=== PATIENT | female | born 2000 | race Caucasian/White ===

== ENCOUNTER 2025-04-28 22:32 | Inpatient (IN) ==
[2025-04-28] MEDS ORDERED: CALCIUM CARBONATE 500 MG CHEWABLE TAB PO PRN (23:18)
[2025-04-28] MEDS ORDERED: LIDOCAINE 1% LOCAL 20 ML VIAL INFIL PRN (23:18)
[2025-04-28] MEDS ORDERED: OXYTOCIN 30 UNITS/NSS 30 UNITS/500 ML BAG IV PRN (23:18)
[2025-04-28] MEDS ORDERED: ACETAMINOPHEN 325 MG TAB PO PRN (23:18)
[2025-04-28 23:53] LABS: Hematocrit (blood only) 32.2 % (37.0-47.0); Hemoglobin 10.7 g/dl (12.0-16.0); Mean Corpuscular Hemoglobin 26.2 pg (25.0-34.0); Mean Corpuscular Volume 78.7 fL (80.0-100.0); Platelet Count 282 K/uL (130-400); RDW Standard Deviation 38.9 fL (36.4-46.3); Red Blood Count 4.09 M/uL (4.20-5.40); White Blood Count 12.93 K/ul (4.8-10.8)
[2025-04-29] MEDS: LACTATED RINGER'S 1,000 ML IV PRN (00:25)
[2025-04-29] MEDS ORDERED: diphenhydrAMINE 50 MG/ML VIAL IV PRN (00:54)
[2025-04-29] MEDS ORDERED: LIDOCAINE 2% MPF LOCAL 5 ML VIAL EPI PRN (00:54)
[2025-04-29] MEDS ORDERED: SODIUM CHLORIDE 0.9% PF INJ 10 ML VIAL EPI PRN (00:54)
[2025-04-29] MEDS ORDERED: NALOXONE HCL 1 MG in SODIUM CHLORIDE 0.9% 1,000 ML IV PRN (00:54)
[2025-04-29] MEDS ORDERED: BUPIVACAINE 0.25% PF 30 ML VIAL EPI PRN (00:54)
[2025-04-29] MEDS ORDERED: ROPIVACAINE 0.5% PF 5 MG/ML 20 ML VIAL EPI PRN (00:54)
[2025-04-29] MEDS ORDERED: NALOXONE HCL 0.4 MG/1 ML VIAL/CARP IV PRN (00:54)
[2025-04-29] MEDS ORDERED: NALBUPHINE HCL INJ 10 MG/ML AMP IV PRN (00:54)
--- NOTE | 2025-04-29 00:54 | Anesthesiology Consultation ---
Date of Service April 29, 2025 Assessment & Plan (1) Encounter for pre-operative examination: Chart Review Chart Review: Patient NOT seen in Pre Admission Testing and Acceptable Risk for Labor Epidural Consults Requested none History Height/Weight Height: 5 ft 4 in Weight: 92.533 kg Allergies Allergy/AdvReac Type Severity Reaction Status Date / Time No Known Allergies Allergy Unknown Verified 04/28/25 23:01 Medications Home Medications Medication Instructions Recorded Confirmed Last Taken [id number] 1 mg 1 tab PO DAILY 04/28/25 04/28/25 04/28/25 tablet Active Medications Generic Name Dose Route Start Last Admin Trade Name Freq PRN Reason Stop Dose Admin Lactated Ringer's 1,000 mls @ 125 mls/hr 04/28/25 23:18 04/29/25 00:25 Lr IV 04/30/25 23:17 999 mls/hr .Q8H PRN Administration L&D Protocol Protocol Past Medical History Medical History Anemia had iron infusion today Past Surgical History Surgical History [place] teeth removed Social History Smoking Status: Former smoker Hx Alcohol Use: No Hx Substance Use: No Physical Exam Vital Signs Last Vital Signs Temp 98.2 F 04/28/25 23:02 Pulse 75 04/28/25 22:57 Resp 18 04/28/25 23:02 BP 124/74 04/28/25 22:57 O2 Del Method Room Air 04/28/25 23:02 Testing Laboratory Results 04/28/25 23:32
[2025-04-29] MEDS: BUPIVACAINE 0.25% PF 30 ML VIAL EPI STA (01:13)
[2025-04-29] MEDS: LIDOCAINE 2%/EPINEPHRINE 1:200,000 20 ML PF EPI STA (01:13)
[2025-04-29] MEDS: fentANYL 2 MCG/ML BUPIVacaine 0.125%-NSS 100ML BAG EPI PRN (01:14)
[2025-04-29] MEDS: fentANYL 2 MCG/ML BUPIVacaine 0.125%-NSS 100ML BAG ONE (01:24)
[2025-04-29] MEDS: BUPIVACAINE 0.25% PF 30 ML VIAL ONE (01:24)
[2025-04-29] MEDS: LIDOCAINE 2%/EPINEPHRINE 1:200,000 20 ML PF ONE (01:25)
[2025-04-29] MEDS: SODIUM CHLORIDE 0.9% PF INJ 10 ML VIAL ONE (01:25)
[2025-04-29] MEDS: SODIUM CHLORIDE 0.9% PF INJ 10 ML VIAL EPI STA (01:25)
[2025-04-29] MEDS: OXYTOCIN 30 UNITS/NSS 30 UNITS/500 ML BAG IV PRN (02:30)
[2025-04-29] MEDS ORDERED: ACETAMINOPHEN W/CODEINE #3 1 TAB PO PRN (07:37)
[2025-04-29] MEDS ORDERED: BENZOCAINE 20% SPRY 85 APPLN/85 GM CAN EXT PRN (07:37)
[2025-04-29] MEDS ORDERED: ACETAMINOPHEN 325 MG TAB PO PRN (07:37)
[2025-04-29] MEDS ORDERED: OXYTOCIN 30 UNITS/NSS 30 UNITS/500 ML BAG IV PRN (07:37)
[2025-04-29] MEDS ORDERED: HYDROCORTISONE ACETATE 25 MG SUPP PR PRN (07:37)
--- NOTE | 2025-04-29 07:45 | Delivery Summary ---
Vaginal Delivery Summary Date of Service April 29, 2025 Vaginal Delivery Summary Patient is a 1 para 1 admitted in spontaneous labor at 38 weeks 5 days gestation. On admission she was over 4 cm dilated. Labor spontaneously. Requested received epidural for pain control. And was augmented with low-dose Pitocin. The full dilatation without a live female infant in under an hour. Pitocin was stopped about an hour prior to delivery. eventually delivered at 38 weeks and 6 days gestation. Was delivered with a nuchal cord around the neck. She had direct occiput anterior position over an intact perineum. was suctioned through the mouth and the nose. Shoulders were delivered without difficulty. Then the nuchal cord was reduced over the head. Cord was allowed to pulse for 1 full minute. Was then clamped and cut by the father. Cord blood was taken. With IV Pitocin running the placenta was removed intact. Inspection of the perineum revealed a small superficial laceration at 5:00 at the vaginal introitus. This was repaired with a running 3-0 Chromic Gut suture. Bladder was catheterized for about 100 mL of urine. Quantitative blood loss was 52 mL. Patient tolerated delivery well
[2025-04-29] MEDS: DIPHTHER/TETAN/PERTUS Vaccine (Tdap, Adol/Adult) 0.5mL IM ONE (08:20)
[2025-04-29] MEDS: IBUPROFEN 600 MG TAB PO PRN (08:31)
[2025-04-29] MEDS: DOCUSATE SODIUM 100 MG CAP PO SCH (08:58)
[2025-04-29] MEDS: PRENATAL VITAMIN 1 TAB PO SCH (08:58)
--- NOTE | 2025-04-29 09:19 | Anesthesia Procedure Note ---
Date of Service April 29, 2025 Anesthesia Post Epidural Note Vital Signs Vital Signs: Temp Pulse Resp BP Pulse Ox O2 Del Method 37.1 C 104 H 20 122/58 L 100 Room Air 04/29/25 08:20 04/29/25 09:04 04/29/25 09:05 04/29/25 09:04 04/29/25 07:21 04/29/25 04:15 Pain Intensity Bilateral Abdomen: Pain Intensity: 0 Notes Mental Status: alert / awake / arousable and participated in evaluation Nausea / Vomiting: adequately controlled Pain: adequately controlled Airway Patency, RR, SpO2: stable & adequate BP & HR: stable & adequate Hydration State: stable & adequate Neuraxial Anesthesia: was administered and sensory block is resolving Anesthetic Complications: no major complications apparent and Pt Satisfied with anesthetic care Epidural: Removed without complications and With tip intact
[2025-04-30 06:33] LABS: Hematocrit (blood only) 29.6 % (37.0-47.0); Hemoglobin 9.6 g/dl (12.0-16.0); Mean Corpuscular Hemoglobin 25.9 pg (25.0-34.0); Mean Corpuscular Volume 80.0 fL (80.0-100.0); Platelet Count 252 K/uL (130-400); RDW Standard Deviation 39.8 fL (36.4-46.3); Red Blood Count 3.70 M/uL (4.20-5.40); White Blood Count 14.42 K/ul (4.8-10.8)
--- NOTE | 2025-04-30 09:28 | Obstetrical Progress Note ---
Date of Service April 30, 2025 Assessment & Plan Admission and Anticipated Discharge Date Admission Date: April 28, 2025 Subjective Patient is seen and examined. She feels well, no complaints. Ambulating without dizziness Voiding without difficulty Tolerating regular diet with out N&V Bleeding is minimal No fever/ chills/ CP/ SOB/ N&V/ Leg pain Breast feeding without problems Vital Signs Temp Pulse Resp BP Pulse Ox O2 Del Method 04/30/25 07:26 Room Air 04/30/25 07:26 36.7 C 73 16 120/75 97 Room Air 04/30/25 04:23 36.6 C 78 18 112/69 99 Room Air 04/29/25 23:48 36.9 C 83 18 119/66 98 Room Air Lab Results 04/28/25 04/30/25 Range/Units 23:32 06:04 WBC 12.93 H 14.42 H (4.8-10.8) K/ul RBC 4.09 L 3.70 L (4.20-5.40) M/uL Hgb 10.7 L 9.6 L (12.0-16.0) g/dl Hct 32.2 L 29.6 L (37.0-47.0) % MCV 78.7 L 80.0 (80.0-100.0) fL MCH 26.2 25.9 (25.0-34.0) pg MCHC 33.2 32.4 (32.0-36.0) g/dL RDW Std Deviation 38.9 39.8 (36.4-46.3) fL RDW Coeff of Poly 13.7 13.8 (11.5-14.5) % Plt Count 282 252 (130-400) K/uL MPV 9.9 9.8 (9.4-12.4) fL Treponema pallidum Ab Negative (Negative) PE: General: Alert, orientedx3, NAD Abd: soft, NT, fundus firm, below Umbilicus Perineum intact, Lochia rubra minimal Ext; NT, no edema AP: 25 yo s/p , ppd# 1 VSS Afebrile doing well Continue routine care All questions were answered D/C home tomorrow Results & Data Vital Signs (Past 12 Hours) Vital Signs Temp Pulse Resp BP Pulse Ox O2 Del Method 04/30/25 07:26 Room Air 04/30/25 07:26 36.7 C 73 16 120/75 97 Room Air 04/30/25 04:23 36.6 C 78 18 112/69 99 Room Air 04/29/25 23:48 36.9 C 83 18 119/66 98 Room Air
[2025-05-01 02:09] VITALS: PULSE 81
[2025-05-01 06:42] LABS: Hematocrit (blood only) 32.6 % (37.0-47.0); Hemoglobin 10.1 g/dl (12.0-16.0)
[2025-05-01 07:48] VITALS: BP 123/77; RESP 18; TEMP 97.9; O2SAT 96
--- NOTE | 2025-05-01 09:41 | Obstetrical Progress Note ---
Date of Service May 01, 2025 Subjective Ambulation: ambulating normally Voiding: no voiding problems Passing Gas:: Yes Diet Tolerance:: regular diet Lochia:: Small Feeding Type:: breast feeding Current Pain Level(1-10): 0 doing well. plans for d/c Physical Exam Constitutional WD/WN, vitals as above Gastrointestinal (Abdomen) normal bowel sounds, soft, nontender, no hepatosplenomegaly Inspection/Auscultation: abdomen normal to inspection Musculoskeletal Extremities: extremities normal to inspection Skin no rashes, warm and dry Neurologic patellar DTR's 2+ bilat, sensation intact Psychiatric A+Ox3, euthymic affect Results & Data Vital Signs (Past 12 Hours) Vital Signs Temp Pulse Resp BP Pulse Ox O2 Del Method 05/01/25 07:45 36.6 C 81 18 123/77 96 Room Air 05/01/25 00:00 36.9 C 81 16 124/73 98 Room Air Laboratory Results 04/28/25 04/30/25 05/01/25 23:32 06:04 06:12 WBC 12.93 H 14.42 H RBC 4.09 L 3.70 L Hgb 10.7 L 9.6 L 10.1 L Hct 32.2 L 29.6 L 32.6 L MCV 78.7 L 80.0 MCH 26.2 25.9 MCHC 33.2 32.4 RDW Std Deviation 38.9 39.8 RDW Coeff of Poly 13.7 13.8 Plt Count 282 252 MPV 9.9 9.8 Treponema pallidum Ab Negative
== END 2025-05-01 11:11 | disposition home or self-care (01) | DRG 807 ==
LOC: OPB 22:32 → 4S1 22:33 → 4E2 04-29 10:52